=== PATIENT | female | born 1975 | race African-American/Black ===

== ENCOUNTER 2022-12-15 04:46 | Emergency (ER) | payer MEDICAID, OTHER ==
[~2022-12-15] VITALS: Ht 170.2 cm; Wt 70.0 kg
[2022-12-15 04:49] VITALS: BP 134/77; O2SAT 99
[2022-12-15 06:22] VITALS: PULSE 97; RESP 14; TEMP 98.4
== END 2022-12-15 06:22 | disposition home or self-care (01) ==
LOC: ER 04:59
DX: R06.00 Dyspnea, unspecified (principal); Z88.0 Allergy status to penicillin
CPT/HCPCS: 71045; 81025; 99283

== ENCOUNTER 2024-05-01 09:41 | Emergency (ER) | payer MEDICAID, OTHER ==
[~2024-05-01] VITALS: Ht 157.5 cm; Wt 68.0 kg
[2024-05-01 09:44] VITALS: BP 160/113; PULSE 80; RESP 17; TEMP 36.7; O2SAT 99
== END 2024-05-01 10:48 | disposition home or self-care (01) ==
LOC: ER 09:41
DX: F19.90 Other psychoactive substance use, unspecified, uncomplicated (principal); F20.9 Schizophrenia, unspecified; Z79.899 Other long term (current) drug therapy; Z88.0 Allergy status to penicillin
CPT/HCPCS: 82962; 99283